=== PATIENT | male | born 1995 | race Caucasian/White ===

== ENCOUNTER 2020-08-30 16:27 | Emergency (ER) | payer SELFPAY ==
[~2020-08-30] VITALS: Ht 167.6 cm; Wt 75.3 kg
[2020-08-30 16:36] VITALS: Ht 167.6 cm; Wt 75.3 kg
[2020-08-30 18:01] VITALS: BP 137/79
== END 2020-08-30 18:01 | disposition home or self-care (01) ==
LOC: ED 16:27
DX: S61.211A Laceration without foreign body of left index finger without damage to nail, initial encounter (principal); W45.8XXA Other foreign body or object entering through skin, initial encounter; Y93.89 Activity, other specified; Y92.89 Other specified places as the place of occurrence of the external cause; Y99.8 Other external cause status
CPT/HCPCS: 90715; A4570; J2001

== ENCOUNTER 2020-09-02 23:05 | Emergency (ER) | payer SELFPAY ==
[~2020-09-02] VITALS: Ht 167.6 cm; Wt 75.7 kg
[2020-09-02 23:16] VITALS: Ht 167.6 cm; Wt 75.7 kg
[2020-09-02 23:45] VITALS: BP 120/54
== END 2020-09-02 23:45 | disposition home or self-care (01) ==
LOC: ED 23:05
DX: S61.211D Laceration without foreign body of left index finger without damage to nail, subsequent encounter (principal); X58.XXXD Exposure to other specified factors, subsequent encounter

== ENCOUNTER 2020-09-11 13:53 | Emergency (ER) | payer SELFPAY ==
[~2020-09-11] VITALS: Ht 170.2 cm; Wt 76.7 kg
[2020-09-11 14:14] VITALS: BP 123/69; Ht 170.2 cm; Wt 76.7 kg
== END 2020-09-11 15:34 | disposition home or self-care (01) ==
LOC: ED 13:53
DX: S61.211D Laceration without foreign body of left index finger without damage to nail, subsequent encounter (principal); X58.XXXD Exposure to other specified factors, subsequent encounter